=== PATIENT | female | born 1960 | race Caucasian/White ===

== ENCOUNTER 2017-01-10 14:11 | Emergency (ER) | payer OTHER ==
[~2017-01-10] VITALS: Ht 154.9 cm; Wt 83.5 kg
[~2017-01-10 14:11] MED LIST: CLONAZEPAM1 MG PO; CYCLOBENZAPRINE10 MG PO; ESCITALOPRAM OXA5 MG PO; GABAPENTIN300 MG PO; HYDROCHLOROTHIA25 MG PO; OMEPRAZOLE20 MG PO; OXYCODONE HCL20 M1 PO; PROMETHAZINE HC25 M1 PO; TRAZODONE HCL100 MG PO
[2017-01-10] MEDS ORDERED: NORCO 5-325 TA1 EACH PO (14:32)
[2017-01-10] MEDS ORDERED: METHYLPREDNISOLO4 M1 PO (14:32)
[2017-01-30] MEDS ORDERED: TRAMADOL HCL50 MG PO (21:25)
== END 2017-01-10 14:51 | disposition home or self-care (01) ==
LOC: ED 14:11
DX: M54.9 Dorsalgia, unspecified (principal); Z88.5 Allergy status to narcotic agent; Z88.6 Allergy status to analgesic agent; Z91.030 Bee allergy status; Z79.899 Other long term (current) drug therapy
CPT/HCPCS: 99283

== ENCOUNTER 2017-01-17 12:05 | Emergency (ER) | payer OTHER ==
[~2017-01-17] VITALS: Ht 154.9 cm; Wt 83.5 kg
[~2017-01-17 12:05] MED LIST changes: +METHYLPREDNISOLO4 M1 PO; +NORCO 5-325 TA1 EACH PO
[2017-01-17] MEDS ORDERED: MULTI-DAY VITA1 EACH PO (13:28)
[2017-01-17] MEDS ORDERED: OXYBUTYNIN CHLOR5 MG PO (13:29)
[2017-01-17] MEDS ORDERED: NAPROSYN500 MG PO (13:29)
[2017-01-17] MEDS ORDERED: RANITIDINE HCL150 M1 PO (13:30)
[2017-01-17] MEDS ORDERED: TIZANIDINE HCL4 MG PO (13:31)
[2017-01-17] MEDS ORDERED: VITAMIN D250000 UNIT PO (13:32)
[2017-01-17] MEDS ORDERED: BANOPHEN50 MG PO (13:33)
[2017-01-17] MEDS ORDERED: DULOXETINE HCL60 MG PO (13:35)
[2017-01-17] MEDS ORDERED: LORATADINE10 M2 PO (13:36)
[2017-01-30] MEDS ORDERED: TRAMADOL HCL50 MG PO (21:25)
== END 2017-01-17 15:12 | disposition home or self-care (01) ==
LOC: ED 12:05
DX: M79.604 Pain in right leg (principal); I10 Essential (primary) hypertension; F41.9 Anxiety disorder, unspecified; F32.9 Major depressive disorder, single episode, unspecified; F17.200 Nicotine dependence, unspecified, uncomplicated; W01.0XXA Fall on same level from slipping, tripping and stumbling without subsequent striking against object, initial encounter; Z90.49 Acquired absence of other specified parts of digestive tract; Z90.710 Acquired absence of both cervix and uterus; Z98.51 Tubal ligation status; Z88.5 Allergy status to narcotic agent; Z88.8 Allergy status to other drugs, medicaments and biological substances; Z91.030 Bee allergy status; Z79.899 Other long term (current) drug therapy
CPT/HCPCS: 73502; 96374; 96375; 99283; J1200; J3010

== ENCOUNTER → 2017-01-30 | Emergency (ER) | payer OTHER ==
[~2017-01-30] VITALS: Ht 154.9 cm; Wt 82.5 kg
[~2017-01-30] MED LIST changes: +BANOPHEN50 MG PO; +DULOXETINE HCL60 MG PO; +LORATADINE10 M2 PO; +MULTI-DAY VITA1 EACH PO; +NAPROSYN500 MG PO; +OXYBUTYNIN CHLOR5 MG PO; +RANITIDINE HCL150 M1 PO; +TIZANIDINE HCL4 MG PO; +TRAMADOL HCL50 MG PO; +VITAMIN D250000 UNIT PO
== END ==
LOC: ED 19:08
DX: S70.01XA Contusion of right hip, initial encounter (principal); I10 Essential (primary) hypertension; F41.9 Anxiety disorder, unspecified; F32.9 Major depressive disorder, single episode, unspecified; F17.200 Nicotine dependence, unspecified, uncomplicated; Z90.710 Acquired absence of both cervix and uterus; Z98.51 Tubal ligation status; Z88.5 Allergy status to narcotic agent; Z88.8 Allergy status to other drugs, medicaments and biological substances; Z91.030 Bee allergy status; Z79.899 Other long term (current) drug therapy; W18.30XA Fall on same level, unspecified, initial encounter; Z91.81 History of falling
CPT/HCPCS: 73502; 96374; 99283; J1885

== ENCOUNTER 2018-08-22 21:01 | Emergency (ER) | payer OTHER ==
[~2018-08-22] VITALS: Ht 154.9 cm; Wt 64.9 kg
--- OUTSIDE RECORDS SUMMARY | 2018-08-22 21:04 | XMS ---
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 E.Radha VISIT COUNT ([address] [facility] TOTAL 7 NOTE: Visits indicate total known visits. ED/UCC VISIT TRACKING (12 MO.) 08/22/2018 21:02 [facility] TYPE: Emergency COMPLAINT: - PAIN/BURNING SENSATION 08/15/2018 18:11 [facility] [place] TYPE: Emergency DIAGNOSES: 0. CHEST PAIN 08/09/2018 16:12 [facility] [place] TYPE: Emergency DIAGNOSES: 0. BURNING SENSATION ALL OVER BODY 07/30/2018 20:40 [facility] TYPE: Emergency DIAGNOSES: 0. SKIN BURNING VIA DEIDRE 07/22/2018 11:43 [facility] DIAGNOSES: 0. SOB 07/02/2018 20:00 [facility] [place] [facility]: Emergency COMPLAINT: - itching, burning, pain all over DIAGNOSES: - Urticaria, unspecified - Allergy status to analgesic agent status - Systemic lupus erythematosus, unspecified - Cellulitis of left lower limb - Other disturbances of skin sensation - Cellulitis of right lower limb 05/18/2018 15:54 [facility] [place] [facility]: Emergency COMPLAINT: - UTI DIAGNOSES: - Arthrodesis status - Systemic lupus erythematosus, unspecified - Allergy status to analgesic agent status - Acquired absence of both cervix and uterus - Acquired absence of other specified parts of digestive tract - Dysuria - Epigastric pain - Frequency of micturition INPATIENT VISIT TRACKING (12 MO.) No inpatient visits to display in this time frame [email or web address]
[2018-08-23] MEDS ORDERED: ZOFRAN4 MG PO (00:25)
== END 2018-08-23 00:43 | disposition home or self-care (01) ==
LOC: ED 21:01
DX: R20.8 Other disturbances of skin sensation (principal); R11.0 Nausea; I10 Essential (primary) hypertension; F41.9 Anxiety disorder, unspecified; F32.9 Major depressive disorder, single episode, unspecified; M32.9 Systemic lupus erythematosus, unspecified; Z86.19 Personal history of other infectious and parasitic diseases; M41.9 Scoliosis, unspecified; F17.200 Nicotine dependence, unspecified, uncomplicated; Z90.710 Acquired absence of both cervix and uterus; Z88.5 Allergy status to narcotic agent; Z88.6 Allergy status to analgesic agent; Z88.8 Allergy status to other drugs, medicaments and biological substances; Z91.038 Other insect allergy status
CPT/HCPCS: 71045; 80053; 81001; 83735; 85025; 99284-25

== ENCOUNTER 2018-08-26 08:25 | Emergency (ER) | payer OTHER ==
[~2018-08-26] VITALS: Ht 154.9 cm; Wt 64.9 kg
[~2018-08-26 08:25] MED LIST changes: +ZOFRAN4 MG PO
--- OUTSIDE RECORDS SUMMARY | 2018-08-26 08:28 | XMS ---
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 Care History Medical/Surgical 08/24/2018 [facility] - CHW RECEIVED ED CASE MANAGEMENT CONSULT- PATIENT CURRENTLY LIVING IN A MOT AND IS RECEIVING ASSISTANCE THRU [employer] FOR HOUSING RESOURCES. - CHW TRIED TO CONTACT PATIENT AT [facility] BUT IS NO LONGER AT [facility]. - CHW CALLED AND LEFT LIZZY A MESSAGE AT [employer] TO SEE ABOUT UPDATED INFORMATION IN REGARDS TO PATIENT HOUSING. - PATIENT DOES NOT HAVE A CONTACT NUMBER. CHW WILL REFER PATIENT TO [facility]. PATIENT HAS [employer] INSURANCE. E.D. VISIT COUNT (12 MO.) [address] [place] [address] [facility] [facility]adi TOTAL 8 NOTE: Visits indicate total known visits. ED/UCC VISIT TRACKING (12 MO.) 08/26/2018 08:26 [facility] [place] TYPE: Emergency COMPLAINT: - BURNING SENSATION HANDS/LUNGS 08/22/2018 21:02 [facility] [place] TYPE: Emergency COMPLAINT: - PAIN/BURNING SENSATION DIAGNOSES: - Systemic lupus erythematosus, unspecified - Other insect allergy status - Allergy status to narcotic agent status - Other disturbances of skin sensation - Nicotine dependence, unspecified, uncomplicated - Acquired absence of both cervix and uterus - Major depressive disorder, single episode, unspecified - Allergy status to analgesic agent status - Personal history of other infectious and parasitic diseases - Anxiety disorder, unspecified - Scoliosis, unspecified - Allergy status to other drugs, medicaments and biological substances status - Essential (primary) hypertension - Nausea 08/15/2018 18:11 [facility] TYPE: Emergency DIAGNOSES: 0. CHEST PAIN 08/09/2018 16:12 [facility] TYPE: Emergency DIAGNOSES: 0. BURNING SENSATION ALL OVER BODY 07/30/2018 20:40 [facility] TYPE: Emergency DIAGNOSES: 0. SKIN BURNING VIA DEIDRE 07/22/2018 11:43 [facility] TYPE: Emergency DIAGNOSES: 0. SOB 07/02/2018 20:00 [facility] [place] TYPE: Emergency COMPLAINT: - itching, burning, pain all over DIAGNOSES: - Urticaria, unspecified - Allergy status to analgesic agent status - Systemic lupus erythematosus, unspecified - Cellulitis of left lower limb - Other disturbances of skin sensation - Cellulitis of right lower limb 05/18/2018 15:54 [facility] [place] TYPE: Emergency COMPLAINT: - UTI DIAGNOSES: - Arthrodesis status - Systemic lupus erythematosus, unspecified - Allergy status to analgesic agent status - Acquired absence of both cervix and uterus - Acquired absence of other specified parts of digestive tract - Dysuria - Epigastric pain - Frequency of micturition INPATIENT VISIT TRACKING (12 MO.) No inpatient visits to display in this time frame [id number]
[2018-08-26] MEDS ORDERED: NEURONTIN300 MG PO (08:49)
--- NOTE | 2018-08-26 12:23 | EKG ---
[facility] [address] [facility] [place] [address] Signed Sinus bradycardia Right atrial enlargement Cannot rule out Anterior infarct , age undetermined Abnormal ECG No previous ECGs available Confirmed by JAYA FLORENCE MD ([id number]) on 08/26/2018 12:22:48 PM Electronically Signed By: JAYA FLORENCE MD 08/26/18 1223 PATIENT NAME: VOLODYMYR DESHPANDE Electrocardiogram DATE OF : 64 PHYSICIAN: JAYA FLORENCE MD REPORT #: [id number] REPORT IS CONFIDENTIAL AND NOT TO BE RELEASED WITHOUT AUTHORIZATION
== END 2018-08-26 10:11 | disposition home or self-care (01) ==
LOC: ED 08:25
DX: G62.9 Polyneuropathy, unspecified (principal); Z59.0 Homelessness; I10 Essential (primary) hypertension; F41.9 Anxiety disorder, unspecified; F32.9 Major depressive disorder, single episode, unspecified; F17.200 Nicotine dependence, unspecified, uncomplicated; Z88.5 Allergy status to narcotic agent; Z91.030 Bee allergy status; Z88.6 Allergy status to analgesic agent
CPT/HCPCS: 71045; 80053; 81001; 84484; 85025; 93005; 93010; 99284-25; 99406; G0239